=== PATIENT | female | born 1950 | race Caucasian/White ===

== ENCOUNTER 2024-02-17 06:29 | Day surgery (SDC) | payer MEDICARE, OTHER, SELFPAY ==
[2024-02-17 13:06] VITALS: BMI 24.5
[2024-02-17 13:07] VITALS: BMI 24.5
[2024-02-17 13:08] VITALS: BP 130/76
[2024-02-17] MEDS: TYLENOL 1000 MG PO (13:20)
--- NOTE | 2024-02-17 14:00 | W.SUR.PREOP ---
Pre-Operative Surgical Note
-
I have examined this patient prior to the performance of the scheduled procedure.
The patient's condition is unchanged from the time of the current History and
Physical and the patient is able to undergo the scheduled procedure.
[2024-02-17 15:35] VITALS: BP 122/66
--- NOTE | 2024-02-17 16:59 | W.IMMPOSTOP ---
Surgical Immed Post Op Note
-
Primary Surgeon: DREW Benjamin MD
Assisting Surgeon:
Pre-op Diagnosis: Left facial mohs defect, BCC
Post-op Diagnosis: Same
Procedure Performed: Left cheek wound be prep and adjacent tissue transfer
Anesthesia Type: Local
Specimen / Cultures: None
Estimated Blood Loss: 3cc
Complications: None
Operative Findings: As expected
--- NOTE | 2024-02-17 17:00 | OR.RPT ---
Operative Report
Operative Report
Date of surgery: 02/17/2024
Preoperative diagnosis: Left cheek Mohs defect, basal cell carcinoma
Postoperative diagnosis: Same
Procedure:
1. Wound bed prep 2.5 x 1.5 cm, left cheek
2. Adjacent tissue transfer left cheek 3 x 2 cm
Complications: None
Anesthesia: Local
EBL: Minimal
Indication for procedure: Patient is a 73-year-old female with a prior diagnosis of basal cell carcinoma of the left cheek. She underwent Mohs excision with confirmed clear margins. She was left with a defect that she desired plastic surgery
reconstruction for. As such a plan was made for same-day reconstruction of the defect using local tissue rearrangement. Upon presentation she was found to have a 2.5 x 1.5 cm wound of the left cheek just lateral to the nasolabial fold. Discussion
was had about adjacent tissue transfer using the cheek to fill the defect. Risk of the procedure include scar, wound, bleeding, infection. She understood these risk desired to proceed
Procedure in detail: Patient was taken back to the operating placed supine on table. Timeout for patient safety was performed was confirmed that SCDs were in place. Patient was prepped with Betadine solution and draped in usual sterile fashion.
Local anesthesia was obtained with 1% lidocaine with epinephrine and a regional block and with local infiltration. After confirming adequate anesthesia, the wound was again measured confirm the aforementioned measurements. Wound bed prep was then
performed over the area of the wound 2.5 x 1.5 cm. This involved removing eschar and devitalized tissues. Wound base with the subcutaneous tissues. A plan for adjacent tissue transfer from the left cheek was made to fill the defect. This
required back cuts superiorly and inferior along the lateral aspect of the nasolabial fold. This was marked out accordingly and the incisions were made with 15 blade. The flap was appropriately elevated and advanced into the defect. Bovie
electrocautery was used for meticulous hemostasis. The wound was then closed in layers with a series of 5-0 Vicryl sutures. Superficial sutures were placed in an interrupted fashion using 5-0 nylon's. Patient tolerated the procedure well was
performed without complication. All counts were correct at the end the case.
== END 2024-02-17 16:10 | disposition home or self-care (01) ==
LOC: SDS 06:29
PROVIDERS: ATTENDING PHYSICIAN Surgery Plastic and Reconstructive Surgery
DX: C44.319 Basal cell carcinoma of skin of other parts of face (principal)
CPT/HCPCS: 14040; 93005

== ENCOUNTER → 2024-09-15 13:08 | Outpatient (REF) | payer MEDICARE, OTHER, SELFPAY | LOC: WDC 13:08 | PROVIDERS: ATTENDING PHYSICIAN Family Medicine | DX: Z12.31 Encounter for screening mammogram for malignant neoplasm of breast (principal) | CPT/HCPCS: 77063; 77067 ==